=== PATIENT | male | born 1935 | race Caucasian/White ===

== ENCOUNTER → 2016-09-23 | Day surgery (SDC) | payer MEDICARE, OTHER ==
[~2016-09-23] VITALS: Ht 180.3 cm; Wt 95.1 kg
[~2016-09-23] MED LIST: CALCIUM 600 +1 EAC7 PO; CASODEX50 MG PO; FOLIC ACID 40400 MCG PO; LEVSIN0.125 MG PO; LOMOTIL1 TAB PO; MEGACE40 MG PO; MULTI VITAMIN1 EACH PO; PRILOSEC20 MG PO; PRINIVIL OR ZES10 MG PO
--- NOTE | ~2016-09-23 | OR ---
PATIENT'S NAME: ANTONIETA DING [facility] AGE: 81 Y [address] ROOM: [place] [id number] [place]: [facility] [place] DATE: 09/23/2016 OR/Procedure Report DISCHARGE DATE: FAMILY PHYSICIAN: Sarkis Roberts MD ATTENDING PHYSICIAN: Marquise Reeder SURGEON: Marquise Reeder MD ELECTROTYPER: DATE OF PROCEDURE: 09/23/2016 PREOPERATIVE DIAGNOSES: 1. Gross hematuria. 2. CA of the prostate. POSTOPERATIVE DIAGNOSIS: Bladder lesion. PROCEDURE PERFORMED: Cystoscopy and bladder biopsy. DESCRIPTION OF PROCEDURE: After adequate anesthesia, he was prepped and draped. A 21 scope was passed. Anterior urethra was normal. Prostate was absent. He has had a previous prostatectomy. 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 No papillary tumors or solid tumors in the bladder except right at the bladder neck area on the right side, there was a small solid-appearing lesion that was bleeding. With the endoscopic forceps, this was biopsied and then it was thoroughly fulgurated with the Bugbee electrode. He was then accompanied to recovery area. MARQUISE REEDER MD EKL/modl /[id number] d: 09/23/16 0706 t: 09/24/16 0423, OPERATIVE SUMMARY
--- NOTE | ~2016-09-23 | HP ---
PATIENT'S NAME: ANTONIETA DING [facility] AGE: 81 Y [address] ROOM: [place] [address] LOCATION: [facility] ADMIT DATE: 09/23/2016 History & Physical DISCHARGE DATE: FAMILY PHYSICIAN: Sarkis Roberts MD ATTENDING PHYSICIAN: Chau Reeder DATE OF SERVICE: HISTORY: A 81-year-old male, who was diagnosed with adenocarcinoma of the prostate T3a Turrell 6 in September 2002. In October 2002, he had a perineal prostatectomy. His PSA did not return to normal, gradually increased and in December 2005, he received a course of radiation therapy to the prostatic bed. His PSA has continued to increase and in October 2009, his PSA was 10 and he was started on androgen depletion therapy with Trelstar IM every 3 months. His PSA then has returned to normal and has been undetectable ever since then. He continues to get his Trelstar injections every 3 months. For the past 6 months, he has had problems with gross painless hematuria. Cystoscopy was done and there was some tissue around the bladder neck area which was friable and bleeding. At that time, there was no evidence of any changes of radiation cystitis. He continues to have gross painless hematuria and seen now for cysto biopsy. His urine cytology was negative and his last bone scan showed no evidence of metastatic disease. PAST MEDICAL HISTORY/ILLNESSES: 1. Hypertension. 2. Cancer of the colon. 3. Glaucoma. OPERATIONS: Colon resection in 1998. ALLERGIES: NONE KNOWN. PHYSICAL EXAMINATION: GENERAL: A well-developed, well-nourished, alert male. 217 pounds, 146/84. PATIENT'S NAME: ANTONIETA DING [facility] AGE: 81 Y [address] ROOM: [place] [address] LOCATION: [facility] ADMIT DATE: 09/23/2016 History & Physical DISCHARGE DATE: FAMILY PHYSICIAN: Sarkis Roberts MD ATTENDING PHYSICIAN: Chau Reeder CHEST: Clear. HEART: Normal sinus rhythm. ABDOMEN: Soft with no palpable masses. : Normal penis. Testicles are normal. Prostatic fossa is empty. RECTAL: Good sphincter tone. No palpable masses. EXTREMITIES: Good peripheral pulses. IMPRESSION: Gross painless hematuria. PLAN: As above. MD JEREMI FINNEY/gale /[id number] D: [id number] T: [id number] HISTORY & PHYSICAL
[2016-09-23 05:42] LABS: BASOPHIL # 0.1 K/uL (0.0-0.2); BASOPHIL % 1.4 %; EOSINOPHIL # 0.1 K/uL (0.0-0.5); EOSINOPHIL % 1.5 %; HEMATOCRIT 40.7 % (37.0-53.0); HEMOGLOBIN 13.9 g/dL (11.0-16.0); IMMATURE GRANULOCYTE % 0.2 %; LYMPHOCYTE # 2.7 K/uL (0.8-4.0); LYMPHOCYTE % 40.4 %; MCH 31.7 pg (27.0-34.0); MCHC 34.2 gm/dL (32.0-36.5); MCV 92.9 fl (83.0-98.0); MONOCYTE # 0.8 K/uL (0.0-1.0); MONOCYTE % 11.8 %; MPV 10.7 fl (9.4-12.4); NEUTROPHIL % 44.7 %; NRBC % 0 /100WBC (0-0.00); PLATELET COUNT 147 K/uL (150-450); RBC 4.38 M/uL (3.50-5.50); WBC 6.6 K/uL (4.0-11.0)
== END | disposition disaster alternative care site (69) ==
LOC: GPOC 09-21 15:00 → GSDC 05:05 → GPOC 05:30
PROVIDERS: Urology
PROC: 0TBC8ZX Excision of Bladder Neck, Via Natural or Artificial Opening Endoscopic, Diagnostic (ICD-10-PCS; principal; 2016-09-23)
DX: C67.5 Malignant neoplasm of bladder neck (principal); I10 Essential (primary) hypertension; Z85.038 Personal history of other malignant neoplasm of large intestine; Z85.46 Personal history of malignant neoplasm of prostate; Z90.49 Acquired absence of other specified parts of digestive tract
CPT/HCPCS: J0713; J2001; J7040; J7120